=== PATIENT | female | born 1980 ===

== ENCOUNTER 2018-01-07 16:05 | Emergency (ER) | payer OTHER ==
[2018-01-07 16:08] VITALS: RESP 16; TEMP 98.1
[2018-01-07] MEDS ORDERED: Sodium Chloride 0.9% 1,000 ML IV STA (16:37)
--- NOTE | 2018-01-07 17:00 | ED PDOC ---
HPI: Headache Time Seen by Provider: 01/07/18 16:19 Chief Complaint (Nursing): GI Problem Chief Complaint (Provider): Headache, Vomiting History Per: Patient History/Exam Limitations: no limitations Onset/Duration Of Symptoms: Days (x2) Current Symptoms Are (Timing): Still Present Associated Symptoms: Photophobia, Nausea, Vomiting Additional Complaint(s): 37 year old female with no past medical history presents complaining of headaches for the past 2 days onset after waking up. No trauma or injury. Patient was seen at [facility] ER yesterday, had CT head which was normal. Rapid strep was negative and patient was discharged home on Tylenol for pain. Headache is persistent today despite taking Motrin and Tylenol. Patient now also complaining of nausea, and vomited once. Also felt feverish and had chills and bodyaches. Patient reports some photophobia, but no blurred vision or double vision. PMD: Non-[facility] Provider Past Medical History Reviewed: Historical Data, Nursing Documentation, Vital Signs Vital Signs: Last Vital Signs Temp 98.1 F 01/07/18 16:06 Pulse 88 01/07/18 16:06 Resp 16 01/07/18 16:06 BP 103/65 01/07/18 16:06 Pulse Ox 99 01/07/18 16:06 - Medical History PMH: No Chronic Diseases - Surgical History Surgical History: No Surg Hx - Family History Family History: States: Unknown Family Hx - Social History Current smoker - smoking cessation education provided: No Alcohol: None Drugs: Denies - Immunization History Hx Tetanus Toxoid Vaccination: No Hx Influenza Vaccination: No Hx Pneumococcal Vaccination: No - Home Medications Home Medications: Ambulatory Orders Medication Instructions Recorded Acetaminophen [Tylenol 325mg tab] 650 mg PO Q4 #50 tab 01/07/18 Naproxen [Naprosyn] 500 mg PO BID PRN #20 tablet 01/07/18 Ondansetron [Zofran] 4 mg PO Q8H #9 tab 01/07/18 - Allergies Allergies/Adverse Reactions: Allergies Allergy/AdvReac Type Severity Reaction Status Date / Time amoxicillin Allergy Mild Verified 01/06/18 20:50 Penicillins Allergy Mild Verified 01/06/18 20:50 Review of Systems ROS Statement: Except As Marked, All Systems Reviewed And Found Negative Constitutional: Positive for: Fever, Chills, Other (Bodyaches) Eyes: Positive for: Other (Photophobia). Negative for: Vision Change Cardiovascular: Negative for: Chest Pain Respiratory: Negative for: Shortness of Breath Gastrointestinal: Positive for: Nausea, Vomiting. Negative for: Diarrhea Neurological: Positive for: Headache Physical Exam - Reviewed Nursing Documentation Reviewed: Yes Vital Signs Reviewed: Yes - Physical Exam Appears: Positive for: Uncomfortable (mild to moderate discomfort. Pt sitting with eyes closed in dark room) Head Exam: Positive for: ATRAUMATIC, NORMAL INSPECTION, NORMOCEPHALIC Skin: Positive for: Normal Color, Warm. Negative for: Rash, Cyanosis Eye Exam: Positive for: Normal appearance, EOMI, PERRL (pupils 6mm bilaterally) Neck: Positive for: Normal, Painless ROM, Supple Cardiovascular/Chest: Positive for: Regular Rate, Rhythm, Other (Normal S1, S2) . Negative for: Murmur Respiratory: Positive for: Normal Breath Sounds, Other (Lungs clear to auscultation). Negative for: Accessory Muscle Use, Respiratory Distress Gastrointestinal/Abdominal: Positive for: Bowel Sounds (in all 4 quadrants), Soft, Tenderness (mild, diffuse). Negative for: Rebound Back: Positive for: Normal Inspection. Negative for: Vertebral Tenderness Extremity: Positive for: Normal ROM. Negative for: Deformity, Swelling, Other ( clubbing) Neurologic/Psych: Positive for: Alert (and Awake), Other (responsive to all questions appropriately) - Laboratory Results Result Diagrams: 01/07/18 16:59 01/07/18 16:59 - ECG O2 Sat by Pulse Oximetry: 99 (RA) Pulse Ox Interpretation: Normal - Progress Re-evaluation Time: 18:34 Condition: Re-examined, Improved Medical Decision Making Medical Decision Making: Initial Impression: Acute headache with persistent pain Time: 16:37 Initial Plan: * Blood work * Flu swab * IV fluids * Pepcid 20 mg IV * Toradol 30 mg IV * Zofran 4 mg IV * Imitrex Inj 6 mg * Reassessment Labs reviewed: Negative flu Scribe Attestation: Documented by Gloria Sheldon, acting as a scribe for Lizzette Henson MD Provider Scribe Attestation: All medical record entries made by the Scribe were at my direction and personally dictated by me. I have reviewed the chart and agree that the record accurately reflects my personal performance of the history, physical exam, medical decision making, and the department course for this patient. I have also personally directed, reviewed, and agree with the discharge instructions and disposition. Disposition - Clinical Impression Clinical Impression: Headache - Patient ED Disposition Is Patient to be Admitted: No Doctor Will See Patient In The: Office Counseled Patient/Family Regarding: Diagnosis, Need For Followup, Rx Given - Disposition Referrals: Mary Dodd MD [Family Provider] - [facility] [place] [Outside] Disposition: Routine/Home Disposition Time: 18:35 Condition: IMPROVED Additional Instructions: Tests performed: 01/06/2018 CT Head and rapid strep - both normal 01/07/2018 CBC, CMP, influenza, urine dip, ESR: WNL Prescriptions: Naproxen [Naprosyn] 500 mg PO BID PRN #20 tablet PRN Reason: Pain, Moderate (4-7) Ondansetron [Zofran] 4 mg PO Q8H #9 tab Instructions: Headache, Adult (DC) Forms: [facility] (Togolese) Print Language: ENGLISH - POA Present On Arrival: None
[2018-01-07 17:08] LABS: BASO # 0.1 K/uL (0.0-0.2); BASO % 0.6 % (0.0-2.0); EOS % 0.2 % (0.0-4.0); HEMOGLOBIN 12.4 g/dL (12.0-16.0); LYMPH # 1.4 K/uL (1.0-4.3); LYMPH % 13.6 % (20.0-40.0); MEAN CELL VOLUME 92.6 fl (81.0-99.0); MEAN CORPUSCULAR HEMOGLOBIN 31.5 pg (27.0-31.0); MONO # 0.8 K/uL (0.0-0.8); MONO % 7.6 % (0.0-10.0); NEUT # 7.9 K/uL (1.8-7.0); RBC 3.94 Mil/uL (3.80-5.20); RED CELL DISTRIBUTION WIDTH 13.1 % (11.5-14.5); WHITE BLOOD COUNT 10.1 K/uL (4.8-10.8)
[2018-01-07 17:17] LABS: ALB/GLOB RATIO 1.1 (1.0-2.1); ALT/SGPT 28 U/L (9-52); AST/SGOT 21 U/L (14-36); BLOOD UREA NITROGEN 10 mg/dl (7-17); CALCIUM 9.2 mg/dL (8.4-10.2); GFR AFRICAN-AMERICAN > 60; GFR NON-AFRICAN AMERICAN > 60
[2018-01-07 18:56] VITALS: BP 100/54; PULSE 77; O2SAT 98
== END 2018-01-07 18:54 | disposition home or self-care (01) ==
LOC: H.ER 16:05
DX: R51 Headache (principal); R11.2 Nausea with vomiting, unspecified; Z88.0 Allergy status to penicillin
CPT/HCPCS: 80053; 81025; 85025; 85651; 87804; 96372; 96374; 96375; 99283; J1885; J2405; J3030; J7040